=== PATIENT | male | born 1965 | race Caucasian/White ===

== ENCOUNTER 2019-01-15 22:32 | Emergency (ER) | payer OTHER ==
[~2019-01-15] VITALS: Ht 177.8 cm; Wt 79.4 kg
[2019-01-15 22:35] VITALS: BP 140/90
--- NOTE | 2019-01-15 22:38 | NUR ---
TO LOBBY A/W BED AMBULATORY
--- NOTE | 2019-01-15 23:57 | NUR ---
53 Y/O MALE PRESENTS TO ED WITH C/O LEFT FLANK PAIN X1 WEEK. SEVERE ACHE, 9/10. NO HX BUT STATES HAVING KIDNEY PAIN IN THE PAST. NAUSEA WITHOUT VOMITTING. SEEN AT URGENT CARE AND INSTRUCTED TO F/U WITH ER FOR CT SCAN. PT ALSO STATES IBUPROFEN HELPS REDUCE PAIN AND TAKES REGULARLY BUT IS OUT OF MEDICATION AT THIS TIME. POSITIONED IN BED FOR COMFORT. ER MD AWARE. CONTINUE TO MONITOR.
--- NOTE | 2019-01-15 23:57 | NUR ---
PT TO ER BED 2
[2019-01-16] MEDS ORDERED: KETOROLAC 60 MG/2 ML VIAL IM ONE (01:35)
--- NOTE | 2019-01-16 01:45 | NUR ---
Dr. Cabello examining patient.
[2019-01-16 01:58] VITALS: BP 141/88
--- NOTE | 2019-01-16 01:58 | NUR ---
PT DISCHARGED WITH PAPERWORK. RX RIMA DAVIS. EDUCATED PT REGARDING MEDICATIONS AND S/E. EDUCATED PT REGARDING D/C DIAGNOSIS AND INSTRUCTIONS. PT VERBALIZED UNDERSTANDING OF TEACHING. TOLD PT TO FOLLOW UP WITH PCP AND WHEN TO RETURN TO ED. PT VSS. ALL QUESTIONS ANSWERED.
== END 2019-01-16 01:58 | disposition home or self-care (01) ==
LOC: MED 22:32
DX: R10.9 Unspecified abdominal pain (principal); F17.210 Nicotine dependence, cigarettes, uncomplicated
CPT/HCPCS: 81002; 96372; 99283; J1885